=== PATIENT | female | born 1995 | race Caucasian/White ===

== ENCOUNTER → 2021-03-28 08:43 | Outpatient (BNVA) | payer OTHER, SELFPAY | PROVIDERS: Family Provider Family Medicine; Visit Provider Nurse Practitioner Women's Health | DX: N92.6 Irregular menstruation, unspecified (principal) | CPT/HCPCS: 81025 ==

== ENCOUNTER → 2021-04-30 13:55 | Outpatient (BNVA) | payer OTHER, SELFPAY | PROVIDERS: Family Provider Family Medicine; Visit Provider Obstetrics & Gynecology | DX: Z34.80 Encounter for supervision of other normal pregnancy, unspecified trimester (principal) | CPT/HCPCS: 80307; 84315; 85025; 86592; 86762; 86803; 86850; 86900; 87086; 87340 ==

== ENCOUNTER → 2021-05-11 15:37 | Outpatient (BNVA) | payer OTHER, SELFPAY | PROVIDERS: Family Provider Family Medicine; Visit Provider Obstetrics & Gynecology | DX: Z34.90 Encounter for supervision of normal pregnancy, unspecified, unspecified trimester (principal) | CPT/HCPCS: 76857; 84315; 87491; 87591; 87661; 88175 ==

== ENCOUNTER 2021-06-26 17:48 | Emergency (ER) | payer OTHER, SELFPAY ==
[2021-06-26 18:00] VITALS: BP 124/81; PULSE 89; RESP 16; TEMP 36.8; O2SAT 97; BMI 21.9
--- NOTE | 2021-06-26 18:32 | USR_ITS ---
PROCEDURE INFORMATION: Exam: US , Limited Exam date and time: 06/26/2021 6:32 PM Age: 26 years old Clinical indication: complicated by abdominal or pelvic pain; Right lower quadrant; Second trimester (14 weeks 0 days to 27 weeks 6 days); Gestational age or lmp: 18w3d; ; Prior surgery; Surgery type: Appendectomy; Additional info: Rlq pain/ preg TECHNIQUE: Imaging protocol: Real-time ultrasound of the maternal uterus with image documentation. Exam focused on the clinical indication. COMPARISON: US OB transvaginal [facility] 04/13/2021 1:40 PM FINDINGS: Gestation: Live intrauterine gestation with heart rate of 144 bpm. Placenta: Anterior placenta. MATERNAL: Cervix: Cervical length measures 3.9 cm. Right adnexa: The right ovary is partially visualized on exam. There is a dominant cystic structure within the partially visualized right ovary measuring 4.3 cm in size. It is incompletely assessed on today's study. The blood flow to the right ovary is preserved. Left adnexa: The left ovary is not visualized on exam. US/US OB limited [id number] IMPRESSION: 1. Unremarkable limited exam. 2. Negative for right ovarian torsion. Radiation Dose CTDIVOL = (mGy): DLP = (mGy-cm)
--- NOTE | 2021-06-26 18:34 | W.ED.ABDPA2 ---
HPI - Abdominal Pain General: Chief Complaint: Abdominal Pain Stated Complaint: 18 Wk Preg, ABD Pain Time Seen by Provider: 06/26/21 18:25 Source: patient Mode of arrival: ambulatory Limitations: no limitations History of Present Illness: HPI narrative: 26-year-old female who is currently 18 weeks states that she been having right lower quadrant pain since this morning she saw her OB earlier today was told it could be round ligament pain she is worried she has a history of ovarian cysts states pain is worsened today and is worse with movement. She has had an appendectomy denies any vaginal bleeding denies any discharge or dysuria. MD elicited complaint: abdominal pain Associated Symptoms: Denies chills, dysuria and fever(s) Review of Systems Const: Denies: fever(s), chills, body aches or change in appetite Eyes: Denies: blurry vision or eye discomfort ENMT: Denies: throat pain or dental pain Card: Denies: chest pain Resp: Denies: dyspnea GI: Reports: abdominal pain : Denies: dysuria Musc: Denies: neck pain or back pain Skin/Breast: Denies: rash Neuro: Denies: headache(s) Psych: Denies: depression Maurizio/Lymph: Denies: easy bruising All/Imm: Denies: urticaria PFSH ED PFSH: Medical History No pertinent past medical history neghx: htn,dm,thyroid,dvt/pe PCP: None Surgical History Hx of appendectomy (~2012) 02/03/2013- Laparoscopy appendectomy. DX: Chronic appendictis. Performed by Dr. Molina at [facility] in [place], [place]. . Found inflammed appendix during D&C by Dr. Rodriguez. All one surgery per patient Hx of dilation and curettage (~2012) 02/03/2013- Laparoscopy with Right ovarian cystotomy and drainage and D&C, appendectomy done all one surgery. Dx: Thickened endometrium, SAB, Right hemorrhagic ovarian cyst, Pelvic inflammatory disease. Performed by Dr. Rodriguez at [facility] in [place], [place]. Family History Grandmother Stroke Maternal Denies family history of Colon cancer Ovarian cancer Diabetes Heart disease Hypercholesteremia Breast cancer Hypertension Uterine cancer Thyroid disease Physical Exam Const: COMMON NORMALS: no acute distress, patient oriented x3 and healthy appearing HENMT: COMMON NORMALS: normocephalic and atraumatic HEAD & SCALP: normocephalic and atraumatic Eye: COMMON NORMALS: Equal, round and reactive pupils present and EOMs intact bilaterally PUPIL: Yes Equal, round and reactive pupils present Neck/C-Spine: COMMON NORMALS: full ROM and supple Chest: COMMONS NORMALS: normal inspection of the chest and normal palpation of entire chest wall Resp: COMMON NORMALS: normal respiratory effort, No retractions, No use of accessory muscles and clear to auscultation bilaterally AUSCULTATION: clear to auscultation bilaterally Cardio: COMMON NORMALS: regular rate, regular rhythm and No murmurs present (Cardio) RATE: regular rate RHYTHM: regular rhythm GI: COMMON NORMALS: Normal to inspection, nondistended, normoactive bowel sounds present, Soft to palpation and no masses PALPATION: Yes Soft to palpation OTHER: Gravid uterus slight right lower quadrant tenderness no extreme tenderness Extremity: COMMON NORMALS: normal to inspection and full ROM Neuro: COMMON NORMALS: patient oriented x3, moves all extremities and no focal motor deficits Psych: COMMON NORMALS: mental status grossly normal, Normal thought process present and cooperative THOUGHT PROCESS: Normal thought process present Skin: COMMON NORMALS: no rashes or lesions noted and no wounds GENERAL SKIN EXAM: no rashes or lesions noted Course Vital Signs: Vital signs: Vital Signs Temperature 98.3 F 06/26/21 18:00 Pulse Rate 89 06/26/21 18:00 Respiratory Rate 16 06/26/21 18:00 Blood Pressure 124/81 06/26/21 18:00 Pulse Oximetry 97 06/26/21 18:00 MDM - Abdominal Pain MDM Narrative: Medical decision making narrative: Patient presents abdominal pain is improving ultrasound showed ovarian cyst no other acute findings. She has had an appendectomy no signs appendicitis she is stable for discharge is to follow-up PCP and return if worsening. Lab Data: Labs: Lab Results 06/26/21 06/26/21 06/26/21 18:50 19:15 19:15 WBC 15.8 10^3/uL H 10 ^3/uL (4.0-10.0) RBC 3.85 10^6/uL L 10 ^6/uL (4.1-5.3) Hgb 11.5 g/dL g/dL (11.5-15.3) Hct 35.0 % L % (37.0-47.0) MCV 90.9 fl fl (81-99) MCH 29.9 pg pg (28.0-34.0) MCHC 32.9 g/dL g/dL (30.0-36.0) RDW 13.6 % % (12.1-15.1) Plt Count 347 10^3/cmm 10^3 /cmm (130-400) MPV 11.0 fL H fL (7.4-10.4) Neut % (Auto) 79.6 % % Lymph % (Auto) 13.3 % % Moore % (Auto) 5.6 % % Eos % (Auto) 0.8 % % Baso % (Auto) 0.3 % % Neut # (Auto) 12.60 10^3/uL H 1 0^3/uL (1.8-7.7) Lymph # (Auto) 2.1 10^3/uL 10^3/ uL (0.8-4.8) Moore # (Auto) 0.9 10^3/uL 10^3/ uL (0.2-0.9) Eos # (Auto) 0.1 10^3/uL 10^3/ uL (0.0-0.8) Baso # (Auto) 0.1 10^3/uL 10^3/ uL (0.0-0.1) Nucleated RBC % (a uto) 0 % % Nucleated RBCs # 0.0 /100WBC /100W BC Sodium 133 mmol/L L mmol /L (136-145) Potassium 4.1 mmol/L mmol/L (3.5-5.1) Chloride 99 mmol/L mmol/L (98-107) Carbon Dioxide 21 mmol/L L mmol/ L (22-29) Anion Gap 17.1 (5-19) BUN 5 mg/dL L mg/dL (6-20) Creatinine 0.4 mg/dL L mg/dL (0.5-0.9) GFR Calculation 191.5 mL/min H mL /min (90-130) Glucose 74 mg/dL mg/dL (65-115) Calculated Osmolal ity 272 mOsm/kg L mOs m/kg (285-295) Calcium 8.7 mg/dL mg/dL (8.5-10.5) Total Bilirubin 0.2 mg/dL mg/dL (0.15-1.2) AST 13 U/L U/L (0-32) ALT 10 U/L U/L (0-33) Alkaline Phosphata se 62 IU/L IU/L (35-105) Total Protein 7.2 g/dL g/dL (6.6-8.7) Albumin 3.7 g/dL g/dL (3.5-5.2) Globulin 3.5 g/dL g/dL (1.3-4.6) Lipase 19 U/L U/L (13-60) Urine Color Yellow (Yellow) Urine Appearance Sl hazy (CLEAR) Urine pH 7 (5-7) Ur Specific Gravit y 1.010 (1.005-1.030) Urine Protein Neg (Negative) Urine Glucose (UA) Norm (Normal) Urine Ketones 2+ H (Negative) Urine Blood Neg (Negative) Urine Nitrate Negative (Negative) Urine Bilirubin Neg (Negative) Urine Urobilinogen Norm mg/dL mg/dL (Negative) Ur Leukocyte Saloni ase Negative (Negative) Discharge Plan Discharge Patient Disposition: Home Clinical Impression: Ovarian cyst affecting , antepartum, Abdominal pain Condition: Stable Prescriptions: No Action prenat.vits,marlene,[id number] Tablet 1 tab PO DAILY RF: 0 Discharge Orders: Discharge ED (Routine); Ordered 06/26/21 Ordered By: Blossom Gonzalez Referrals: Cat Hernandez MD [Physician] - 1-3 days Discharge Diet: Advance as tolerated Discharge Activity: Resume usual activity Patient Instructions: Abdominal Pain (ED), Abdominal Pain in (ED) Coding Level of Care Code ED Bass Mechanism Maker for Chg Fwd Exam Comprehensive
[2021-06-26 19:37] LABS: Basophils # 0.1 10^3/uL (0.0-0.1); Basophils % 0.3 %; Eosinophils # 0.1 10^3/uL (0.0-0.8); Eosinophils % 0.8 %; Hemoglobin 11.5 g/dL (11.5-15.3); Lymphocytes # 2.1 10^3/uL (0.8-4.8); Lymphocytes % 13.3 %; Mean Corpuscular HGB Conc 32.9 g/dL (30.0-36.0); Mean Corpuscular Hemoglobin 29.9 pg (28.0-34.0); Mean Corpuscular Volume 90.9 fl (81-99); Monocytes # 0.9 10^3/uL (0.2-0.9); Monocytes % 5.6 %; Neutrophils % 79.6 %; Nucleated Red Blood Cells % 0 %; Platelet Count 347 10^3/cmm (130-400); Red Blood Count 3.85 10^6/uL (4.1-5.3); Red Cell Distribution Width 13.6 % (12.1-15.1); White Blood Count 15.8 10^3/uL (4.0-10.0)
[2021-06-26] MEDS: acetaminophen 325 mg Tablet 650 MG PO (19:42)
[2021-06-26 19:57] LABS: Add Urine Microscopic? NO; Charge for UA Resulting for Rev
[2021-06-26 20:02] LABS: Alanine Aminotransferase 10 U/L (0-33); Albumin Level 3.7 g/dL (3.5-5.2); Alkaline Phosphatase 62 IU/L (35-105); Anion Gap 17.1 (5-19); Aspartate Amino Transferase 13 U/L (0-32); Blood Urea Nitrogen 5 mg/dL (6-20); Calcium 8.7 mg/dL (8.5-10.5); Carbon Dioxide 21 mmol/L (22-29); Chloride 99 mmol/L (98-107); Globulin 3.5 g/dL (1.3-4.6); Glomerular Filtration Rate 191.5 mL/min (90-130); Glucose 74 mg/dL (65-115); Lipase 19 U/L (13-60); Osmolality Calculated 272 mOsm/kg (285-295); Potassium 4.1 mmol/L (3.5-5.1); Sodium 133 mmol/L (136-145); Total Bilirubin 0.2 mg/dL (0.15-1.2); Total Protein 7.2 g/dL (6.6-8.7)
[2021-06-26 20:04] LABS: Bilirubin Urine Neg (Negative); Blood Urine Neg (Negative); Glucose Urine UA Norm (Normal); Ketones Urine 2+ (Negative); Leukocyte Esterase Urine Negative (Negative); Nitrate Urine Negative (Negative); Protein Urine Neg (Negative); Urine Appearance SL Hazy (CLEAR); Urine Color Yellow (Yellow); Urobilinogen Urine Norm (Negative); pH Urine 7 (5-7)
[2021-06-26 20:28] VITALS: BP 116/74; PULSE 74; RESP 18; O2SAT 97
== END 2021-06-26 20:20 | disposition home or self-care (01) ==
PROVIDERS: Emergency Provider Emergency Medicine
DX: N83.209 Unspecified ovarian cyst, unspecified side (principal); O99.891 Other specified diseases and conditions complicating pregnancy; O34.82 Maternal care for other abnormalities of pelvic organs, second trimester; Z3A.18 18 weeks gestation of pregnancy; R10.9 Unspecified abdominal pain
CPT/HCPCS: 76815; 80053; 81003; 83690; 85025; 99283

== ENCOUNTER → 2021-08-31 12:46 | Outpatient (BNVA) | payer OTHER, SELFPAY | PROVIDERS: Visit Provider Obstetrics & Gynecology | DX: O34.80 Maternal care for other abnormalities of pelvic organs, unspecified trimester (principal); N83.209 Unspecified ovarian cyst, unspecified side | CPT/HCPCS: 82950; 84315; 84443; 85025 ==

== ENCOUNTER → 2021-10-25 13:53 | Outpatient (BNVA) | payer OTHER, SELFPAY | PROVIDERS: PCP Family Medicine; Visit Provider Obstetrics & Gynecology | DX: Z34.80 Encounter for supervision of other normal pregnancy, unspecified trimester (principal) | CPT/HCPCS: 84315; 87081 ==

== ENCOUNTER 2021-11-13 09:56 | Inpatient (IN) | payer OTHER, SELFPAY ==
[2021-11-13] VITALS (90 sets, daily range): BP systolic 102–151; BP diastolic 55–80; PULSE 65–114; RESP 17; TEMP 36.1–36.3; O2SAT 98–100; BMI 25.5
[2021-11-13 09:25] LABS: Actim Prom Positive
--- NOTE | 2021-11-13 09:43 | PC.NURSE ---
FHT tracing and vital signs from 844 to 940 is located in
[2021-11-13 09:49] LABS: Nitrazine Paper, PH Negative
[2021-11-13] MEDS: lactated ringers 1,000 ML 999 ML IV ×2 (10:21→14:18)
[2021-11-13 10:24] LABS: Basophils % 0.4 %; Eosinophils # 0.1 10^3/uL (0.0-0.8); Eosinophils % 1.1 %; Hematocrit 41.4 % (37.0-47.0); Hemoglobin 13.4 g/dL (11.5-15.3); Lymphocytes # 1.9 10^3/uL (0.8-4.8); Lymphocytes % 17.6 %; Mean Corpuscular HGB Conc 32.4 g/dL (30.0-36.0); Mean Corpuscular Hemoglobin 29.5 pg (28.0-34.0); Mean Platelet Volume 12.2 fL (7.4-10.4); Monocytes # 0.9 10^3/uL (0.2-0.9); Monocytes % 8.4 %; Neutrophils # 7.85 10^3/uL (1.8-7.7); Nucleated Red Blood Cells % 0 %; Platelet Count 247 10^3/cmm (130-400); Red Blood Count 4.55 10^6/uL (4.1-5.3); Red Cell Distribution Width 14.4 % (12.1-15.1); White Blood Count 10.9 10^3/uL (4.0-10.0)
[2021-11-13] MEDS: oxytocin 30 UNIT/500 ML BAG IV (11:10)
--- NOTE | 2021-11-13 15:21 | ANES.PREANE2 ---
Pre-Anesthetic Assessment Height/Weight: Height 1.63 m Weight 67.585 kg Temp Pulse Resp BP Pulse Ox 97.3 F L 88 17 119/58 100 11/13/21 14:01 11/13/21 15:19 11/13/21 09:49 11/13/21 15:19 11/13/21 15:14 Familial anesthetic complications: None Was Beta Carlie taken within 24 hours: N/A Was Clonidine taken within 24 hours: N/A Social No alcohol and No tobacco Exam alert, oriented x 3, clear to auscultation bilaterally and regular rate & rhythm Airway Submandibular: within normal limits Cervical ROM: within normal limits Mallampati: Class II Dentition: full History/ROS No significant history except as noted Anesthetic Plan ASA status: 2 Anesthesia: Regional (specify below) (Labor Epidural) Medications/Allergies Home Medications Medication Instructions Recorded Confirmed Last Taken Type prenat.vits,marlene,qgu-[id number] 1 tab PO DAILY 03/28/21 11/13/21 11/12/21 08:00 History ferrous sulfate 325 mg (65 mg 325 mg PO DAILY tab 09/26/21 11/13/21 11/12/21 08:00 History iron) tablet,delayed release Allergies Allergy/AdvReac Type Severity Reaction Status Date / Time Penicillins Allergy swelling Verified 11/09/21 14:15 Current Medications Generic Name Dose Route Start Last Admin Trade Name Freq PRN Reason Stop Dose Admin Lactated Ringer's 1,000 mls @ 999 mls/hr 11/13/21 10:00 11/13/21 14:48 Lactated Ringers IV Infused .Q1H1M ITA Infusion Oxytocin 30 unit in 500 mls @ 1 mls/hr 11/13/21 11:15 11/13/21 14:15 Pitocin IV 11 milliunit/min .Q24H ITA 11 mls/hr Titration Protocol 1 MILLIUNIT/MIN Ropivacaine 200 mg in 100 mls @ 13 mls/hr 11/13/21 14:15 11/13/21 15:14 Naropin Premix EPIDURAL 13 mls/hr .Q7H42M ITA Administration Lactated Ringer's 1,000 mls @ 999 mls/hr 11/13/21 14:07 11/13/21 14:18 Lactated Ringers IV 999 mls/hr .Q1H1M PRN Administration See label comments PFSH Anesthesia Medical History No pertinent past medical history neghx: htn,dm,thyroid,dvt/pe PCP: None Surgical History Hx of appendectomy (~2012) 02/03/2013- Laparoscopy appendectomy. DX: Chronic appendictis. Performed by Dr. Molina at [facility] in [place], [place] . Found inflammed appendix during D&C by Dr. Rodriguez. All one surgery per patient Hx of dilation and curettage (~2012) 02/03/2013- Laparoscopy with Right ovarian cystotomy and drainage and D&C, appendectomy done all one surgery. Dx: Thickened endometrium, SAB, Right hemorrhagic ovarian cyst, Pelvic inflammatory disease. Performed by Dr. Rodrigeuz at [facility] in [place], [place] Family History Grandmother Stroke Maternal Denies family history of Colon cancer Ovarian cancer Diabetes Heart disease Hypercholesteremia Breast cancer Hypertension Uterine cancer Thyroid disease Female Reproductive History : 3 Data Anesthesia : 11/13/21 10:10 Short CBC 11/13/21 Range/Units 10:10 WBC 10.9 H (4.0-10.0) 10^3/uL Hgb 13.4 (11.5-15.3) g/dL Hct 41.4 (37.0-47.0) % MCV 91.0 (81-99) fl Plt Count 247 (130-400) 10^3/cmm Neut % (Auto) 72.0 % Neut # (Auto) 7.85 H (1.8-7.7) 10^3/uL Cardiac Studies: No Data to Display
--- NOTE | 2021-11-13 15:22 | ANES.PROC ---
Anesthesia Procedures Procedure/Date: 11/13/21 Epidural: Time Out Performed: Yes Consents Signed: Procedure Consent Consent: requested by attending/covering physician, from patient, risks and benefits reviewed and patient agrees to proceed Lumbar Level: L3-L4 Epidural position: sitting Epidural procedure: sterile prep of area, 1% lidocaine to numb the area, 18 g needle, neg for paresthesia, test dose given, 1.5% xylocaine 1:200k epi, placed PCEA, sterile dressing applied and 0.2% Ropiavacaine @ mls/hr (13) Additional Comments: KATHY at 4cm, cath at 9cm, 5mls of 2% lido PF bolused
[2021-11-13] MEDS: alum-mag-hydroxide-sime 30 mL UDC PO (15:33)
--- NOTE | 2021-11-13 18:34 | PM.OPHPUD ---
Labor & Delivery H&P Update Date of Procedure: November 13, 2021 Date H&P Performed: 11/09/21 H&P update information: I have reviewed H&P completed within last 30 days, I have examined patient prior to procedure and Changes to prior documentation as noted here Changes to previous documentation: The patient presented to labor and delivery with the complaint of rupture of membranes since the evening before. she was found to have a positive actinprom Admission Diagnosis: at 38 weeks, 3 days. Related Problem List Diagnoses (1) Supervision of other normal :
[2021-11-13] MEDS: dextrose 5%-lactated ringers 1,000 ML 125 ML IV (22:47)
[2021-11-14] VITALS (44 sets, daily range): BP systolic 100–136; BP diastolic 57–96; PULSE 67–111; RESP 16–17; TEMP 36.2–37
--- NOTE | 2021-11-14 05:29 | P.PCNOB_ITS ---
Delivery Note: Date of delivery: November 14, 2021 Pre-delivery diagnoses: iup@38w4d, PROM Post-delivery diagnoses: same-delivered Procedure: Delivering Physician: David Estimated blood loss (mL): 20 Findings: Term female in the OJSE presentation with a compound right hand Pre-Delivery Course: The patient was admitted for likely ROM the previous evening. She received pitocin to augment her contractions. She received an epidural for pain management. She had complete cervical dilation and began to push. Delivery: The patient had complete cervical dilation and began to push. The head delivered in the JOSE position over an intact perineum under epidural anesthesia. The nose and mouth were bulb suctioned. The shoulders and body delivered atraumatically. The baby was placed onto the mother's abdomen. The cord was clamped and cut. Cord blood was obtained. The placenta delivered spontaneously. It was inspected and found to be intact. Inspection of the perineum revealed there were no lacerations and no repair was required.. Estimated blood loss 20 mL. Apgars on baby were 10 at 1 minute and 10 at 5 min utes. Weight of baby is 7 pounds 5 ounces. Mother and baby were stable post delivery. History History History 3 Term 1 Miscarriages/Ectopic 1 0 Living Children 1 Coding Level of Care Code Acute Manager Environmental Affairs for Chg Annemarie
[2021-11-14] MEDS: dextrose 5%-lactated ringers 1,000 ML 125 ML IV (05:54)
--- NOTE | 2021-11-14 09:15 | PC.NURSE ---
pt left leg still numb, unable to lift off bed. pt assisted to bedpan, and voided 600mL. ida care performed, chux/pad/bed linen changed. ice pack to perineum. pt instructed to still call for assistance before getting out of bed.
[2021-11-14] MEDS: ibuprofen 800 mg tablet PO ×3 (09:44→21:49)
[2021-11-14] MEDS: docusate sodium 100 mg Capsule PO (09:45)
[2021-11-14] MEDS: prenatal vitamin Capsule 1 CAP PO (09:45)
--- NOTE | 2021-11-14 09:53 | ANE.PACU2 ---
Inpatient post-anesthesia follow up: Airway intact: Yes Vital signs: Temperature 97.2 F Pulse Rate 97 Respiratory Rate 17 Blood Pressure 112/75 Pulse Oximetry 100 Oxygen Delivery Me thod Room Air Oxygen Flow Rate Fraction of Inspir ed Oxygen Hydration adequate: Yes Nausea and vomiting: No Pain level: 2 Mental status: Baseline
--- NOTE | 2021-11-14 10:15 | PC.NURSE ---
pt up to bathroom with assistance from this RN and . void 500mL. ida care performed by pt. pad and underwear and gown changed. pt assisted back to bed, instructed to call nursing for assistance with next attempt out of bed, understanding voiced. ice water given, denies further needs.
--- NOTE | 2021-11-14 14:12 | PC.NURSE ---
pt moved to OB7. oriented to room/call light. proud parent pack discussed.
[2021-11-14 17:52] LABS: Hematocrit 34.6 % (37.0-47.0); Hemoglobin 11.4 g/dL (11.5-15.3); Mean Corpuscular HGB Conc 32.9 g/dL (30.0-36.0); Mean Corpuscular Volume 91.1 fl (81-99); Mean Platelet Volume 12.1 fL (7.4-10.4); Platelet Count 222 10^3/cmm (130-400); Red Cell Distribution Width 14.5 % (12.1-15.1); White Blood Count 14.4 10^3/uL (4.0-10.0)
[2021-11-15 04:15] VITALS: BP 99/62; PULSE 69; RESP 16; TEMP 36.7
[2021-11-15] MEDS: acetaminophen 325 mg Tablet 650 MG PO (05:03)
--- NOTE | 2021-11-15 07:03 | P.DS_ITS ---
Discharge Providers Date of Admission: 11/13/21 09:56 Date of Discharge: November 15, 2021 Attending Provider at Admission: Mariola Iglesias MD Attending Provider at Discharge: Mariola Iglesias MD Primary Care Provider: Miguel Penny MD Diagnoses at Discharge Discharge Diagnosis (1) Supervision of other normal : Status: Acute Reason for Visit Reason for Visit: possible ROM Hospital Course Hospital Course The patient was admitted for induction at term. She had spontaneous delivery of a term . She did well and was ready for discharge on day #1 Physical Exam Narrative: doing well . No concerns today Const: COMMON NORMALS: no acute distress, average body habitus, patient oriented x3, no limitations, healthy appearing, alert and well nourished GENERAL APPEARANCE: cooperative, comfortable, well kempt and well developed ORIENTATION/CONSCIOUSNESS: Yes awake, Yes oriented to person, Yes oriented to place and Yes oriented to time Resp: COMMON NORMALS: normal respiratory effort EFFORT & INSPECTION: Yes able to speak in complete sentences GI: COMMON NORMALS: Soft to palpation and non-tender PALPATION: Yes Soft to palpation Extremity: COMMON NORMALS: no calf tenderness Neuro: COMMON NORMALS: patient oriented x3 SENSORIUM/ORIENTATION: Yes alert, Yes oriented to person, Yes oriented to place and Yes oriented to time Psych: APPEARANCE: Yes well kempt Urinary Catheter Management: Canseco: Cath Placed During This Visit: yes, but has since been removed by the nurse Reason for Continuing Indwelling Catheter: Decision to DC Catheter Urinary Catheter Date of Insertion: 11/13/21 Urinary Catheter Time of Insertion: 16:58 Date Urinary Catheter Removed: 11/14/21 Time Urinary Catheter Discontinued: 05:00 Discharge Data Studies Completed and Pending Laboratory Results WBC 14.4 10^3/uL (4.0-10.0) H 11/14/21 17:50 RBC 3.80 10^6/uL (4.1-5.3) L 11/14/21 17:50 Hgb 11.4 g/dL (11.5-15.3) L 11/14/21 17:50 Hct 34.6 % (37.0-47.0) L 11/14/21 17:50 MCV 91.1 fl (81-99) 11/14/21 17:50 MCH 30.0 pg (28.0-34.0) 11/14/21 17:50 MCHC 32.9 g/dL (30.0-36.0) 11/14/21 17:50 RDW 14.5 % (12.1-15.1) 11/14/21 17:50 Plt Count 222 10^3/cmm (130-400) 11/14/21 17:50 MPV 12.1 fL (7.4-10.4) H 11/14/21 17:50 Neut % (Auto) 72.0 % 11/13/21 10:10 Lymph % (Auto) 17.6 % 11/13/21 10:10 Weston % (Auto) 8.4 % 11/13/21 10:10 Eos % (Auto) 1.1 % 11/13/21 10:10 Baso % (Auto) 0.4 % 11/13/21 10:10 Neut # (Auto) 7.85 10^3/uL (1.8-7.7) H 11/13/21 10:10 Lymph # (Auto) 1.9 10^3/uL (0.8-4.8) 11/13/21 10:10 Weston # (Auto) 0.9 10^3/uL (0.2-0.9) 11/13/21 10:10 Eos # (Auto) 0.1 10^3/uL (0.0-0.8) 11/13/21 10:10 Baso # (Auto) 0.0 10^3/uL (0.0-0.1) 11/13/21 10:10 Nucleated RBC % (auto) 0 % 11/13/21 10:10 Nucleated RBCs # 0.0 /100WBC 11/13/21 10:10 Insulin-like GF I Positive 11/13/21 09:12 Vitals Last Vital Signs Temp 98.0 F 11/15/21 04:15 Pulse 69 11/15/21 04:15 Resp 16 11/15/21 04:15 BP 99/62 11/15/21 04:15 Pulse Ox 100 11/13/21 16:44 Discharge Plan Discharge Patient Disposition: Home Condition: Stable Prescriptions: Continued prenat.vits,marlene,[id number] Tablet 1 tab PO DAILY 0RF ferrous sulfate 325 mg (65 mg iron) tablet,delayed release (DR/EC) 325 mg PO DAILY 0RF Discharge Orders: Discharge Order (Routine); Ordered 11/15/21 Ordered By: Cat Hernandez Patient Instructions: Opioid Safety Discharge Attestations Time Spent in Discharge Care*: less than 30 min Quality Metrics Clinical Quality Measures [ No reported AMI, CVA or VTE this stay] Coding Level of Care Code Acute Chg FW DC note Diagnoses Supervision of other normal Z34.80
[2021-11-15 09:00] VITALS: BP 119/78; PULSE 84; RESP 16; TEMP 36.6
== END 2021-11-15 09:20 | disposition home or self-care (01) | DRG 807 ==
LOC: OPOB 10:18 → OBGYN 10:18
PROVIDERS: Obstetrics & Gynecology; Admitting Provider Obstetrics & Gynecology; PCP Family Medicine; Visit Provider Obstetrics & Gynecology
DX: O80 Encounter for full-term uncomplicated delivery (principal); Z37.0 Single live birth; Z3A.38 38 weeks gestation of pregnancy
CPT/HCPCS: 36415; 51702; 59409; 83986; 84112; 85025; 85027; J2795

== ENCOUNTER → 2024-01-13 15:22 | Outpatient (BNVA) | payer OTHER, SELFPAY | PROVIDERS: PCP Family Medicine; Visit Provider Nurse Practitioner Women's Health | DX: R19.09 Other intra-abdominal and pelvic swelling, mass and lump (principal) | CPT/HCPCS: 76830 ==

== ENCOUNTER 2024-03-11 06:22 | Day surgery (SDC) | payer OTHER, SELFPAY ==
--- NOTE | 2024-03-08 08:18 | ANES.PREANE2 ---
Pre-Anesthetic Assessment Height/Weight: Height 1.63 m Operation Date: 03/11/24 08:05 Proposed Procedures p Exploratory Laparotomy 22845, 81297, 47234, N83.201, N83.202(Not Applicable) - Jonas Winn MD s Laparoscopic Ovarian Cystectomy(Bilateral) - Jonas Winn MD s Possible Laparoscopic Assist Vaginal Hysterectomy(Not Applicable) - Jonas Winn MD s Salpingo-Oophorectomy (Vaginal)(Bilateral) - Jonas Winn MD Familial anesthetic complications: PONV Was Beta Carlie taken within 24 hours: N/A Was Clonidine taken within 24 hours: N/A Social No alcohol and No tobacco Exam alert, oriented x 3, clear to auscultation bilaterally and regular rate & rhythm Airway Mallampati: Class I Dentition: full Anesthetic Plan ASA status: 2 Anesthesia: General Risk of > 500 ml blood loss (7ml/kg in children): No Medications/Allergies Home Medications Medication Instructions Recorded Confirmed Last Taken Type No Known Home Medications 12/26/23 03/08/24 Unknown History Allergies Allergy/AdvReac Type Severity Reaction Status Date / Time Penicillins Allergy swelling Verified 02/10/24 08:42 [facility] Anesthesia Medical History No pertinent past medical history neghx: htn,dm,thyroid,dvt/pe PCP: None Surgical History Hx of appendectomy (~2012) 02/03/2013- Laparoscopy appendectomy. DX: Chronic appendictis. Performed by Dr. Molina at [facility] in [place], [place]. . Found inflammed appendix during D&C by Dr. Rodriguez. All one surgery per patient Hx of dilation and curettage (~2012) 02/03/2013- Laparoscopy with Right ovarian cystotomy and drainage and D&C, appendectomy done all one surgery. Dx: Thickened endometrium, SAB, Right hemorrhagic ovarian cyst, Pelvic inflammatory disease. Performed by Dr. Rodriguez at [facility] in [place], [place]. Family History Grandmother Stroke Maternal Denies family history of Colon cancer Ovarian cancer Diabetes Heart disease Hypercholesteremia Breast cancer Hypertension Uterine cancer Thyroid disease Social History Smoking and tobacco/nicotine status: current every day tobacco/nicotine user Data Anesthesia Cardiac Studies: No Data to Display
[2024-03-11] VITALS (9 sets, daily range): BP systolic 81–117; BP diastolic 56–82; PULSE 60–91; RESP 16–17; TEMP 36.2–36.3; O2SAT 98–100; BMI 20.5
--- NOTE | 2024-03-11 05:30 | W.PM.OPSFHP ---
Same Day Surgery H&P Indication for Procedure/HPI DATE OF PROCEDURE: March 11, 2024 CHIEF COMPLAINT/INDICATIONFOR SURGICAL PROCEDURE: bilateral complex ovarian cysts PREOP DIAGNOSIS: bilateral complex ovarian cysts PLANNED PROCEDURE: Operation Date: 03/11/24 08:05 Proposed Procedures p Exploratory Laparotomy 91428, 03890, 33197, N83.201, N83.202(Not Applicable) - Jonas Winn MD s Laparoscopic Ovarian Cystectomy(Bilateral) - Jonas Winn MD s Possible Laparoscopic Assist Vaginal Hysterectomy(Not Applicable) - Jonas Winn MD s Salpingo-Oophorectomy (Vaginal)(Bilateral) - Jonas Winn MD 28 y.o. with 9 cm bilateral complex ovarian cysts now for exploratory laparotomy, possible bilateral cystectomy, possible bilateral salpingo-oophorectomy, possible hysterectomy Medications/Allergies* Home Medications Medication Instructions Recorded Confirmed Type No Known Home Medications 12/26/23 03/08/24 History Allergies/Adverse Reactions Allergy/AdvReac Type Severity Reaction Status Date / Time Penicillins Allergy swelling Verified 02/10/24 08:42 Pertinent History/Comorbid Conditions* Medical History (Updated 01/14/24 @ 08:40 by Thalia Oconnell NP) No pertinent past medical history neghx: htn,dm,thyroid,dvt/pe PCP: None Surgical History (Updated 04/20/21 @ 14:04 by Maribel Lara APN, THIEN) Hx of appendectomy (~2012) 02/03/2013- Laparoscopy appendectomy. DX: Chronic appendictis. Performed by Dr. Molina at [facility] in [place], [place] . Found inflammed appendix during D&C by Dr. Rodriguez. All one surgery per patient Hx of dilation and curettage (~2012) 02/03/2013- Laparoscopy with Right ovarian cystotomy and drainage and D&C, appendectomy done all one surgery. Dx: Thickened endometrium, SAB, Right hemorrhagic ovarian cyst, Pelvic inflammatory disease. Performed by Dr. Rodriguez at [facility] in [place], [place]. Family History (Updated 03/28/21 @ 08:41 by Ara Mejias) Stroke Grandmother Maternal Denies family history of Colon cancer Ovarian cancer Diabetes Heart disease Hypercholesteremia Breast cancer Hypertension Uterine cancer Thyroid disease Social History Smoking and tobacco/nicotine status: current every day tobacco/nicotine user Pertinent Exam Findings alert, oriented x 3, clear to auscultation bilaterally and regular rate & rhythm Recommendations Surgery/Procedure today Coding Level of Care Code Acute Code for Chg Fwd Time Spent (min) 30
--- NOTE | 2024-03-11 07:01 | P.ANESUD_ITS ---
Pre-Anesthetic Update Pre-Anesthetic Assessment: Date of Surgery/Procedure: 03/11/24 Preop Clarice gnosis: bilateral complex ovarian cysts Proposed Procedure: Operation Date: 03/11/24 08:05 Proposed Procedures p Exploratory Laparotomy 54744, 50094, 82980, N83.201, N83.202(Not Applicable) - Jonas Winn MD s Laparoscopic Ovarian Cystectomy(Bilateral) - Jonas Winn MD s Possible Laparoscopic Assist Vaginal Hysterectomy(Not Applicable) - Jonas Winn MD s Salpingo-Oophorectomy (Vaginal)(Bilateral) - Jonas Winn MD Any changes to Pre-Anesthetic Assessment?: No Last Intake: Intake Last Liquid Date 03/10/24 Last Liquid Time 20:00 Last Solid Date 03/10/24 Last Solid Time 18:00 Vitals: Temperature 97.3 F L 03/11/24 06:52 Temperature Source Temporal Artery S can 03/11/24 06:52 Pulse Rate 75 03/11/24 06:52 Pulse Rhythm Regular 03/11/24 06:52 Pulse Strength 3+ Normal 03/11/24 06:52 Respiratory Rate 17 03/11/24 06:52 Blood Pressure 117/82 03/11/24 06:52 Blood Pressure Heather n 93 03/11/24 06:52 Pulse Oximetry 100 03/11/24 06:52 Oxygen Delivery Me thod Room Air 03/11/24 06:52 Exam: Pre-Anes Outpt Exam: alert, oriented x 3, clear to auscultation bilaterally and regular rate & rhythm Cardiac Studies: No Data to Display
[2024-03-11] MEDS: scopolamine 1.5 Patch 1 PATCH TRANSDERMA (07:15)
[2024-03-11] MEDS: sodium chloride 0.9% 1,000 ML 30 ML IV (07:21)
[2024-03-11 07:39] LABS: OR HCG Qualitative Urine Negative (Negative)
--- NOTE | 2024-03-11 07:57 | W.PM.OPSUD ---
Surgery/Procedure H&P Update DATE OF PROCEDURE: March 11, 2024 DATE H&P PERFORMED: 03/11/24 H&P UPDATE INFORMATION: I have reviewed H&P completed within last 30 days, I have examined patient prior to procedure and No changes to prior documentation PREOP DIAGNOSIS: bilateral complex ovarian cysts PLANNED PROCEDURE: Operation Date: 03/11/24 08:05 Proposed Procedures p Exploratory Laparotomy 72441, 96990, 76226, N83.201, N83.202(Not Applicable) - Jonas Winn MD s Laparoscopic Ovarian Cystectomy(Bilateral) - Jonas Winn MD s Possible Laparoscopic Assist Vaginal Hysterectomy(Not Applicable) - Jonas Winn MD s Salpingo-Oophorectomy (Vaginal)(Bilateral) - Jonas Winn MD
[2024-03-11] MEDS: BUPivacaine 0.5% INJ 30 mL 10 ML INJECTION (10:00)
[2024-03-11] MEDS: BUPivacaine liposome 13.3 mg/mL SDV 20 mL 133 MG INFILTRATI (10:00)
--- NOTE | 2024-03-11 11:05 | PM.OP ---
Operative Report Date of procedure: March 11, 2024 Pre-op diagnosis: bilateral ovarian cysts Post-op diagnosis: same Post-op findings: Normal uterus Right ovary with multiple cystic masses, totaling approximately 10 cm, involving right Fallopian tube Left ovary with several cystic masses attached Normal left fallopian tube Procedure done: Exploratory laparotomy Right salpingo-oophorectomy Left cystectomy Implants: none Specimens removed/disposition: right ovary and cysts right fallopian tube left ovarian cysts Surgeon: Jonas Winn MD Anesthesia: General Estimated blood loss (mL): 25 Complications: none Findings: Normal uterus Right ovary with multiple cystic masses, totaling approximately 10 cm, involving right Fallopian tube Left ovary with several cystic masses attached Normal left fallopian tube Condition: stable Disposition: PACU Brief History: 28 y.o. A1 With palpable pelvic masses on examination Ovaries with multiple cystic masses on pelvic sono Procedure: Informed consent was signed. The patient was taken to the operating room and placed supine on the table. General anesthesia was induced. A Canseco catheter was placed. The abdomen was prepped and draped in the usual fashion. A Pfannenstiel incision was made and carried down through skin, subcutaneous tissue and fascia. The rectus muscles were split in the midline. The peritoneum was entered. An Sanya-O retractor was placed. The uterus was seen to be normal. The right ovary consisted of multiple cystic masses totaling approximately 10 cm. The right fallopian tube was intimately involved with these masses. The cystic masses were isolated by clamping the suspensory ligament and utero-ovarian ligament and thereby removed, along with the right fallopian tube. Similarly, the left ovarian cysts were isolated and removed, leaving a portion of the left ovary. No bleeding was seen. The pelvis was irrigated and it was seen to be hemostatic. All laps and the Sanya-O retractor were removed. The fascia was then closed using an O-Vicryl suture. The subcutaneous tissue was inspected for hemostasis. The skin was re-approximated using Insorb blake. Postoperative condition: stable EBL: 25 cc Complications: none Sponge, needle, and instruments counts were correct x two
[2024-03-11] MEDS: ibuprofen 800 mg tablet PO (11:10)
--- NOTE | 2024-03-11 12:30 | ANE.PACU2 ---
Inpatient post-anesthesia follow up: Airway intact: Yes Vital signs: Temperature 97.1 F Pulse Rate 91 Respiratory Rate 16 Blood Pressure 117/74 Pulse Oximetry 99 Oxygen Delivery Me thod Room Air Oxygen Flow Rate Fraction of Inspir ed Oxygen Hydration adequate: Yes Nausea and vomiting: No Pain level: 1 Mental status: Baseline
== END 2024-03-11 12:30 | disposition home or self-care (01) ==
LOC: OR 06:24 → OBGYN 10:36
PROVIDERS: Anesthesiology; Visit Provider Obstetrics & Gynecology
PROC: (CPT 49000; principal; 2024-03-11 07:55)
PROC: (CPT 58662; 2024-03-11 07:55)
DX: N83.202 Unspecified ovarian cyst, left side (principal); N83.201 Unspecified ovarian cyst, right side; N83.8 Other noninflammatory disorders of ovary, fallopian tube and broad ligament; D49.59 Neoplasm of unspecified behavior of other genitourinary organ
CPT/HCPCS: 58720; 36415; 81025; 86850; 86900; 88305; C9290; J0131; J1100; J1170; J1885; J2250; J2405; J2704; J2710; J3010; J3490; J7030

== ENCOUNTER 2024-10-20 07:17 | Outpatient (CLI) | payer OTHER, SELFPAY ==
[2024-10-20 08:24] LABS: Carcinoembryonic Antigen 0.6 ng/mL (0.0-4.7)
[2024-10-20 08:28] LABS: Cancer Antigen 19 9 4.47 U/mL (0-35)
== END 2024-10-20 07:18 | disposition home or self-care (01) ==
PROVIDERS: PCP Obstetrics & Gynecology Gynecologic Oncology; Referring Provider Obstetrics & Gynecology; Visit Provider Obstetrics & Gynecology
DX: C56.1 Malignant neoplasm of right ovary (principal)
CPT/HCPCS: 36415; 82378; 86301